=== PATIENT | female | born 1965 | race Caucasian/White ===

== ENCOUNTER 2021-04-07 08:27 | Day surgery (SDC) | payer BC, SELFPAY ==
[2021-04-07 09:49] VITALS: BP 101/71; PULSE 91; RESP 18; TEMP 36; O2SAT 100; BMI 19.5
[2021-04-07] MEDS: LACTATED RINGERS 1,000 ML 150 ML IV CONT (10:08)
--- NOTE | 2021-04-07 10:31 | PM.HPGS ---
History of Present Illness History of Present Illness Consent: Risks, benefits, and alternatives have been discussed and questions answered. Patient agrees to proceed with procedure. Chief complaint: screening, hx colon polyp, fam hx colon CA Narrative: Gail Villafuerte is a 56 year old female referred for colon cancer screening. Her last colonoscopy was 5 years ago. She has a family history of colon cancer, maternal aunt and paternal grand mother, and has had polyps removed herself Review of Systems Review of Systems: All systems reviewed & are unremarkable except as noted in HPI and below PMFSH Social History Social History Alcohol use details: 1 drink every 3 weeks Living arrangements: with family Gender identity (if verbalized by the patient): Female Spiritual care concerns: No Meds Home Medications and Allergies Home Medications Medication Instructions Recorded Confirmed Type alendronate 70 mg PO WEEKLY 04/07/21 04/07/21 History duloxetine 60 mg PO DAILY 04/07/21 04/07/21 History levothyroxine 75 mcg PO DAILY 04/07/21 04/07/21 History Allergies Allergy/AdvReac Type Severity Reaction Status Date / Time No Known Allergies Allergy Unverified 04/07/21 09:54 Vital Signs Vital Signs - 24 hr 04/07/21 09:49 Temperature 36.0 C L Pulse Rate 91 Respiratory Rate 18 Blood Pressure 101/71 Pulse Oximetry 100 Exam Resp: Auscultation: clear to auscultation bilaterally Cardio: Rate: regular rate Rhythm: regular rhythm GI: GI Palp: Yes Soft to palpation and No Tenderness to palpation present (GI) Assessment and Plan Assessment and plan (1) Colon cancer screening: Code(s): Z12.11 - Encounter for screening for malignant neoplasm of colon Status: Acute Assessment and Plan: Colonoscopy with possible biopsy or polypectomy or cautery or injection of substances.
[2021-04-07 11:07] VITALS: BP 88/60; PULSE 79; RESP 16; O2SAT 100
[2021-04-07 11:17] VITALS: BP 94/62; PULSE 74; RESP 16; O2SAT 100
[2021-04-07 11:27] VITALS: BP 108/78; PULSE 79; RESP 14; O2SAT 100
== END 2021-04-07 11:52 | disposition home or self-care (01) ==
PROVIDERS: PCP Internal Medicine; Visit Provider Internal Medicine Gastroenterology
PROC: 0DJD8ZZ Inspection of Lower Intestinal Tract, Via Natural or Artificial Opening Endoscopic (ICD-10-PCS; CPT 45378; principal; 2021-04-07 10:30)
DX: Z12.11 Encounter for screening for malignant neoplasm of colon (principal); Z86.010 Personal history of colon polyps; Z80.0 Family history of malignant neoplasm of digestive organs
CPT/HCPCS: 45378; J2704; J7120

== ENCOUNTER 2022-02-01 01:43 | Day surgery (SDC) | payer BC, SELFPAY ==
[2022-01-16 12:41] VITALS: BMI 18.4
--- NOTE | 2022-01-31 12:50 | PM.HPGS ---
History of Present Illness History of Present Illness Consent: Risks, benefits, and alternatives have been discussed and questions answered. Patient agrees to proceed with procedure. Chief complaint: family hx of colon ca, poor prep, neoplasm Narrative: Gail Villafuerte is a 57 year old female referred for colon cancer screening. She had a colonoscopy 1 year ago with a suboptimal prep. Review of Systems Review of Systems: All systems reviewed & are unremarkable except as noted in HPI and below PMFSH Past Medical History Medical History Anxiety History of thyroid cancer Surgical History Surgical History History of breast augmentation History of thyroidectomy Social History Social History Smoking status: Never smoker Alcohol intake: current Alcohol use details: seldom Living arrangements: with family Gender identity (if verbalized by the patient): Female Spiritual care concerns: No Meds Home Medications and Allergies Home Medications Medication Instructions Recorded Confirmed Type alendronate 70 mg tablet 70 mg PO WEEKLY 04/07/21 01/16/22 History levothyroxine 75 mcg tablet 75 mcg PO DAILY 04/07/21 01/16/22 History vilazodone 20 mg tablet (Viibryd) 20 mg PO DAILY 01/16/22 01/16/22 History Allergies Allergy/AdvReac Type Severity Reaction Status Date / Time No Known Allergies Allergy Unverified 01/16/22 12:38 Exam Resp: Auscultation: clear to auscultation bilaterally Cardio: Rate: regular rate Rhythm: regular rhythm GI: GI Palp: Yes Soft to palpation and No Tenderness to palpation present (GI) Assessment and Plan Assessment and plan (1) Colon cancer screening: Code(s): Z12.11 - Encounter for screening for malignant neoplasm of colon Status: Acute Assessment and Plan: Colonoscopy with possible biopsy or polypectomy or cautery or injection of substances.
--- NOTE | 2022-01-31 15:26 | WPDANESEPPF ---
Anes - Initial Pre Proc Eval Procedure: Operation Date: 02/01/22 07:30 Proposed Procedures p Screening Colonoscopy - Hector Garcia MD Date/Time: 01/31/22 15:26 Surgeon: Hector Garcia MD Pre Op Diagnosis: family hx of colon ca, poor prep, neoplasm Patient Data Age: 57 Gender: F Height: 1.73 m Weight: 55 kg Allergies Allergy/AdvReac Type Severity Reaction Status Date / Time No Known Allergies Allergy Unverified 01/16/22 12:38 Home Medications Medication Instructions Recorded Confirmed Type alendronate 70 mg tablet 70 mg PO WEEKLY 04/07/21 01/16/22 History levothyroxine 75 mcg tablet 75 mcg PO DAILY 04/07/21 01/16/22 History vilazodone 20 mg tablet (Viibryd) 20 mg PO DAILY 01/16/22 01/16/22 History Patient hx anesthesia problems: none Family hx anesthesia problems: none Results Review: All pre-operative results and documents have been reviewed as part of the pre-operative evaluation. [facility] Past Medical History Medical History (Updated 01/31/22 @ 15:26 by Balaji Guidry DO) Anxiety History of thyroid cancer Surgical History Surgical History (Updated 01/31/22 @ 15:26 by Balaji Guidry DO) History of breast augmentation History of thyroidectomy Social History Social History Smoking status: Never smoker Alcohol intake: current Alcohol use details: seldom Living arrangements: with family Gender identity (if verbalized by the patient): Female Spiritual care concerns: No Anes - Eval Final PreProcedure Day of Procedure 01/31/22 15:26 Patient weight: thin Heart: regular rate and rhythm Lungs: clear to auscultation Airway: Mallampati scale class II Neurological: alert and oriented Last oral intake: >/= 8 hours ASA classification: II Emergent: no Anesthetic plan: proceed Anesthesia type and monitoring: general GIVS and standard monitoring Results Review: All pre-operative results and documents have been reviewed as part of the pre-operative evaluation. Informed Consent: The patient's anesthetic plan and its attendant risks and benefits were discussed with the patient/family/POA. Questions were solicited and answers provided to the satisfaction of the patient/family/POA.
[2022-02-01 06:19] VITALS: BMI 18.4
[2022-02-01 06:21] VITALS: BP 98/63; PULSE 86; RESP 18; TEMP 36.6; O2SAT 100
[2022-02-01] MEDS: LACTATED RINGERS 1,000 ML 150 ML IV CONT (06:31)
[2022-02-01 07:43] VITALS: BP 136/95; PULSE 72; RESP 17; O2SAT 100
[2022-02-01 07:53] VITALS: BP 92/70; PULSE 80; RESP 24; O2SAT 100
[2022-02-01 08:03] VITALS: BP 95/67; PULSE 75; RESP 17; O2SAT 100
== END 2022-02-01 08:14 | disposition home or self-care (01) ==
PROVIDERS: PCP Internal Medicine; Visit Provider Internal Medicine Gastroenterology
PROC: 0DJD8ZZ Inspection of Lower Intestinal Tract, Via Natural or Artificial Opening Endoscopic (ICD-10-PCS; CPT 45378; principal; 2022-02-01 07:30)
DX: Z09 Encounter for follow-up examination after completed treatment for conditions other than malignant neoplasm (principal); K63.5 Polyp of colon; E89.0 Postprocedural hypothyroidism; Z85.850 Personal history of malignant neoplasm of thyroid; F41.9 Anxiety disorder, unspecified; Z80.0 Family history of malignant neoplasm of digestive organs
CPT/HCPCS: 45385; 88305; J2704; J7120

== ENCOUNTER 2024-09-23 09:55 | Outpatient (CLI) | payer BC, SELFPAY ==
--- NOTE | ~2024-09-23 | MR_ITS ---
EXAMINATION: MR cervical spine wo con DATE: 09/23/2024 10:50 INDICATION: Cervical radiculopathy TECHNIQUE: Magnetic resonance imaging (MRI) of the cervical spine was performed without intravenous c ontrast. Sequences included sagittal T2-weighted FSE, sagittal T2-weighted FS FSE, sagittal T1-weight ed FSE, axial MERGE and axial T2-weighted FSE. COMPARISON: None FINDINGS: Bone alignment is normal. Vertebral body heights are normal. Bone marrow signal intensity is normal . Intervertebral disc heights are normal. Cord signal intensity is normal. Visualized cervical soft t issues are unremarkable. The following disc levels are specifically discussed: C2-C3: The disc does not extend beyond the endplate margin. There is mild right uncovertebral joint o steoarthritis. There is mild right facet joint osteoarthritis. There is no neural foraminal stenosis. There is no central canal stenosis. C3-C4: The disc does not extend beyond the endplate margin. There is mild bilateral uncovertebral mame nt osteoarthritis. There is mild right and moderate left facet joint osteoarthritis. There is mild bi lateral neural foraminal stenosis. There is no central canal stenosis. C4-C5: Disc is mildly bulging. There is moderate bilateral uncovertebral joint osteoarthritis. There is severe left and moderate to severe right facet joint osteoarthritis. There is mild left and modera te right neural foraminal stenosis. There is minimal central canal stenosis. C5-C6: Disc is mildly bulging. There is mild left and moderate right uncovertebral joint osteoarthrit is. There is moderate left and severe right facet joint osteoarthritis. There is mild bilateral, righ t greater than left neural foraminal stenosis. There is minimal central canal stenosis. C6-C7: Disc is minimally bulging. There is moderate bilateral uncovertebral joint osteoarthritis. The re is mild bilateral facet joint osteoarthritis. There is mild to moderate bilateral neural foraminal stenosis. There is no central canal stenosis. C7-T1: The disc does not extend beyond the endplate margin. There is mild bilateral uncovertebral mame nt osteoarthritis. There is mild left facet joint osteoarthritis. There is mild bilateral neural fora faina stenosis. There is no central canal stenosis. IMPRESSION: 1. Mild cervical spondylosis. Reviewed, dictated and finalized at [facility]
--- NOTE | ~2024-09-23 | MR_ITS ---
MRI of the lumbar spine Clinical History: Radiculopathy Technique: Axial T2-weighted images, and sagittal T1-weighted, T2-weighted, and T2 fat-sat images wer e acquired. Findings: No acute fracture seen. There is 4 mm anterolisthesis of L3 over L4. No suspicious bone mar row signal abnormality seen. At L1-L2, there is no disc bulge or herniation. There is mild to moderate facet arthropathy. No centr al canal stenosis or neural foraminal narrowing. At L2-L3, there is diffuse disc bulge with mild to moderate facet arthropathy. No central canal steno sis. There is mild left neural foraminal narrowing. Right neural foramen preserved. At L3-L4, there is moderate degenerative distended. There is diffuse disc bulge with severe facet art hropathy. There is mild central canal stenosis. There is mild left neural foraminal narrowing. Right neural foramen preserved. At L4-L5, there is advanced degenerative disc narrowing. There is minimal disc bulge with moderate fa cet arthropathy. No central canal stenosis. There is mild to moderate right neural foraminal narrowin g. Left neural foramen preserved. At L5-S1, there is moderate to advanced degenerative disc narrowing. There is diffuse disc bulge with probable superimposed mild central protrusion. There is moderate to advanced facet arthropathy. No c entral canal stenosis. There is severe right neural foraminal narrowing, and moderate left neural for aminal narrowing. Paravertebral soft tissues are unremarkable. Impression: Moderate to advanced degenerative spondylosis from L3 through S1, as detailed above. 4 mm anterolisthesis of L3 over L4. Reviewed, dictated and finalized at [facility]. Impression: Moderate to advanced degenerative spondylosis from L3 through S1, as detailed [facility]. 4 mm anterolisthesis of L3 over L4.
== END 2024-09-23 09:56 | disposition home or self-care (01) ==
PROVIDERS: PCP Physical Medicine & Rehabilitation Pain Medicine; Visit Provider Physical Medicine & Rehabilitation Pain Medicine
DX: M47.22 Other spondylosis with radiculopathy, cervical region (principal); M47.26 Other spondylosis with radiculopathy, lumbar region
CPT/HCPCS: 72141; 72148